=== PATIENT | male | born 1985 ===

== ENCOUNTER 2018-10-23 09:53 | Emergency (ER) | payer OTHER ==
[2018-10-23 10:13] VITALS: BMI 30.2
[2018-10-23 10:16] VITALS: RESP 18
--- NOTE | 2018-10-23 10:23 | ED PDOC ---
Arrival/HPI - General Historian: Patient - History of Present Illness Narrative History of Present Illness (Text): 10/23/18 10:21 33yo male with no pmhx who present with complaint of left 1st and 2nd toe pain s/p trauma this morning. states a gas cylinder fell and landed on his toes this morning. Reports pain with weight bearing and ambulation. Did not take any medication for the pain. Denies any other complaint. <Shwetha Vee A - Last Filed: 10/23/18 14:56> <Hipolito Armenta - Last Filed: 10/23/18 15:32> - General Chief Complaint: Lower Extremity Problem/Injury Time Seen by Provider: 10/23/18 09:53 Past Medical History - Provider Review Nursing Documentation Reviewed: Yes - Infectious Disease Hx of Infectious Diseases: None - Psychiatric Hx Substance Use: No - Surgical History Other/Comment: Vasectomy <Shwetha Vee A - Last Filed: 10/23/18 14:56> Family/Social History - Physician Review Nursing Documentation Reviewed: Yes Family/Social History: Unknown Family HX Smoking Status: Never Smoked Hx Alcohol Use: No Hx Substance Use: No <NandaShwetha A - Last Filed: 10/23/18 14:56> Allergies/Home Meds <NandaShwetha A - Last Filed: 10/23/18 14:56> <Hipolito Armenta - Last Filed: 10/23/18 15:32> Allergies/Adverse Reactions: Allergies No Known Allergies Allergy (Verified 10/23/18 10:13) Review of Systems - Physician Review All systems were reviewed & negative as marked: Yes - Review of Systems Constitutional: Normal Eyes: Normal ENT: Normal Respiratory: Normal Cardiovascular: Normal Gastrointestinal: Normal Genitourinary Male: Normal Musculoskeletal: Arthralgias (Left great toe and 2nd toe) Skin: Normal Neurological: Normal Endocrine: Normal Hemo/Lymphatic: Normal Psychiatric: Normal <NandaShwetha A - Last Filed: 10/23/18 14:56> Physical Exam Vital Signs Reviewed: Yes Vital Signs Temp Pulse Resp BP Pulse Ox 10/23/18 10:16 98.1 F 75 18 112/76 95 Temperature: Afebrile Blood Pressure: Normal Pulse: Regular Respiratory Rate: Normal Appearance: Positive for: Well-Appearing, Non-Toxic, Comfortable Pain Distress: None Mental Status: Positive for: Alert and Oriented X 3 - Systems Exam Head: Present: Atraumatic, Normocephalic Pupils: Present: PERRL Extroacular Muscles: Present: EOMI Conjunctiva: Present: Normal Mouth: Present: Moist Mucous Membranes Neck: Present: Normal Range of Motion Respiratory/Chest: Present: Clear to Auscultation, Good Air Exchange. No: Respiratory Distress, Accessory Muscle Use Cardiovascular: Present: Regular Rate and Rhythm, Normal S1, S2. No: Murmurs Abdomen: No: Tenderness, Distention, Peritoneal Signs Back: Present: Normal Inspection Upper Extremity: Present: Normal Inspection. No: Cyanosis, Edema Lower Extremity: Present: NORMAL PULSES, Normal ROM, Tenderness (Over the left great toe and second toe), Neurovascularly Intact. No: Edema, Swelling, Deformity Neurological: Present: GCS=15, CN II-XII Intact, Speech Normal Skin: Present: Warm, Dry, Normal Color. No: Rashes Psychiatric: Present: Alert, Oriented x 3, Normal Insight, Normal Concentration <Diru,Happiness A - Last Filed: 10/23/18 14:56> Vital Signs Temp Pulse Resp BP Pulse Ox 10/23/18 11:44 97.6 F 78 18 128/71 98 10/23/18 10:16 98.1 F 75 18 112/76 95 <Hipolito Armenta - Last Filed: 10/23/18 15:32> Medical Decision Making ED Course and Treatment: 10/23/18 14:56 33yo male in ED for Left 1st and 2nd toes pain s/p trauma this morning. Left foot IMPRESSION: Small minimally displaced fractures are seen in the tip of the 1st and 2nd distal phalanx. Toes margareth tapped. Result was DW the pt. He was referred to a bulk pigment reducer. Ibuprofen 600mg given for pain control. - RAD Interpretation Radiology Orders: 10/23/18 10:20 FOOT LEFT 2ND DIGIT (TOE) [RAD] Stat FOOT LEFT GREAT TOE ROUTINE [RAD] Stat <Diru,Happiness A - Last Filed: 10/23/18 14:56> - RAD Interpretation Radiology Orders: 10/23/18 10:20 FOOT LEFT 3 VIEWS ROUTINE [RAD] Stat - Medication Orders Current Medication Orders: Discontinued Medications Ibuprofen (Motrin Tab) 600 mg PO STAT STA Stop: 10/23/18 10:22 Last Admin: 10/23/18 11:02 Dose: 600 mg MAR Pain/Vitals Document 10/23/18 11:02 SRE (Rec: 10/23/18 11:03 SRE [id number]) Pain Reassessment Is This A Pain ReAssessment? Yes Sleep Is patient sleeping during reassessment? No Pain Scale Used Protocol: PSCALES Pain Scale Used Numeric Location Left, Right or Bilateral Left Pain Location Body Site Foot Description Intermittent <Hipolito Armenta - Last Filed: 10/23/18 15:32> - PA / NETWORK COORDINATOR / Resident Statement / has reviewed & agrees with the documentation as recorded. <Hipolito Armenta - Last Filed: 10/23/18 15:32> Disposition/Present on Arrival - Present on Arrival Any Indicators Present on Arrival: No History of DVT/PE: No History of Uncontrolled Diabetes: No Urinary Catheter: No History of Decub. Ulcer: No History Surgical Site Infection Following: None - Disposition Have Diagnosis and Disposition been Completed?: Yes Disposition Time: 11:15 Patient Plan: Discharge <Shwetah Vee - Last Filed: 10/23/18 14:56> <Hipolito Armenta - Last Filed: 10/23/18 15:32> - Disposition Diagnosis: Fracture of multiple toes Disposition: HOME/ ROUTINE Condition: STABLE Discharge Instructions (ExitCare): Toe Fracture (DC) Additional Instructions: Follow up with a bulk pigment reducer Return to ED for any new or worsening symptoms Prescriptions: RX: Ibuprofen [Motrin Tab] 600 mg PO Q6 #20 tab Referrals: Nazario Peoples DPM [Staff Provider] - Follow up with primary Forms: [employer] (M[place]ese)
--- NOTE | 2018-10-23 11:08 | RAD ---
Date of service: 10/23/2018 PROCEDURE: Left Foot Radiographs. HISTORY: toe pain s/p trauma COMPARISON: None. FINDINGS: BONES: Small minimally displaced fractures are seen in the tip of the 1st and 2nd distal phalanx. JOINTS: Normal. SOFT TISSUES: Normal. OTHER FINDINGS: None. IMPRESSION: Small minimally displaced fractures are seen in the tip of the 1st and 2nd distal phalanx.
[2018-10-23 11:45] VITALS: BP 128/71; PULSE 78; TEMP 97.6; O2SAT 98
== END 2018-10-23 11:41 | disposition home or self-care (01) ==
LOC: ED 09:53
DX: S92.422A Displaced fracture of distal phalanx of left great toe, initial encounter for closed fracture (principal); S92.532A Displaced fracture of distal phalanx of left lesser toe(s), initial encounter for closed fracture; W20.8XXA Other cause of strike by thrown, projected or falling object, initial encounter